=== PATIENT | male | born 1995 | race Caucasian/White ===

== ENCOUNTER 2019-10-23 16:57 | Emergency (ER) | payer MEDICAID, OTHER ==
[~2019-10-23] VITALS: Ht 185.4 cm; Wt 77.1 kg
[~2019-10-23 16:57] MED LIST: DIVA500T PO; FLUP10TA PO; HYDR50TA61 PO; OLAN20TA35 PO
[2019-10-23 17:03] VITALS: BP_SYST 119
[2019-10-23 17:30] VITALS: BP_SYST 119
== END 2019-10-23 17:30 | disposition home or self-care (01) ==
LOC: SED 16:57
DX: F29 Unspecified psychosis not due to a substance or known physiological condition (principal); F15.90 Other stimulant use, unspecified, uncomplicated; Z79.899 Other long term (current) drug therapy
CPT/HCPCS: 99281